=== PATIENT | male | born 1935 | race Caucasian/White ===

== ENCOUNTER 2017-07-08 11:50 | Inpatient (IN) | payer OTHER, MEDICARE ==
[2017-07-08] VITALS (9 sets, daily range): BP systolic 112–187; BP diastolic 65–91; PULSE 60–76; RESP 17–40; TEMP 96.7–97.8; O2SAT 89–98
[~2017-07-08] VITALS: Ht 175.3 cm; Wt 91.4 kg
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
[2017-07-08] MEDS ORDERED: TETANUS/DIPHTHERIA TOXOID ADULT 0.5 ML VIAL IM ONE (12:30)
[2017-07-08] MEDS ORDERED: SODIUM CHLORIDE 0.9% FLUSH 10 ML FLUSH IVF PRN (12:30)
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
[2017-07-08 13:01] LABS: AUTOMATED NEUTROPHIL # 11.8 TH/MM3 (1.8-7.7); BASOPHIL % 0.3 % (0.0-2.0); EOSINOPHIL # 0.1 TH/MM3 (0-0.4); HEMATOCRIT 50.3 % (39.0-51.0); HEMOGLOBIN 16.6 GM/DL (13.0-17.0); LYMPHOCYTE # 1.3 TH/MM3 (1.0-4.8); MEAN CELL VOLUME 94.5 FL (80.0-100.0); MEAN CORPUSCULAR HEMOGLOBIN 31.2 PG (27.0-34.0); MEAN PLATELET VOLUME 8.7 FL (7.0-11.0); MONO % 5.7 % (0.0-8.0); MONOCYTE # 0.8 TH/MM3 (0-0.9); PLATELET COUNT 206 TH/MM3 (150-450); RED BLOOD COUNT 5.32 MIL/MM3 (4.50-5.90); RED CELL DISTRIBUTION WIDTH 14.6 % (11.6-17.2)
[2017-07-08 13:14] LABS: INTERNATIONAL NORMALIZED RATIO 1.1 RATIO; PROTHROMBIN TIME - PATIENT 10.8 SEC (9.8-11.6)
[2017-07-08 13:25] LABS: CALCIUM 9.1 MG/DL (8.5-10.1); CREATININE 1.51 MG/DL (0.60-1.30)
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
[2017-07-08] MEDS ORDERED: IODIXANOL 320 MG/ML 10 ML VIAL (for Rad CT) IVCONTRAST ONE (14:44)
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
[2017-07-08] MEDS ORDERED: MORPHINE SULFATE 2 MG/ML INJ IV PUSH ONE (16:15)
[2017-07-08] MEDS ORDERED: RESP: ALBUTEROL 2.5 MG/IPRATROPIUM 0.5 MG NEB (SCH) INH ONE (16:15)
[2017-07-08] MEDS ORDERED: AZITHROMYCIN INJ 500 MG in SODIUM CHLOR 0.9% 250 ML INJ 250 ML IV ONE (16:15)
[2017-07-08] MEDS ORDERED: cefTRIAXone INJ 1,000 MG in SODIUM CHLORIDE 0.9% INJ 100 ML IV ONE (16:15)
[2017-07-08] MEDS ORDERED: ONDANSETRON HCL 4 MG/2 ML VIAL IV PUSH ONE (16:15)
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
[2017-07-08] MEDS ORDERED: BISACODYL 10 MG SUPP RECTAL PRN (16:45)
[2017-07-08] MEDS ORDERED: ACETAMINOPHEN 325 MG TAB PO PRN (16:45)
[2017-07-08] MEDS ORDERED: LACTULOSE SYRUP 20 GM/30 ML CUP PO PRN (16:45)
[2017-07-08] MEDS ORDERED: RESP: ALBUTEROL 2.5 MG/3 ML NEB (PRN) NEB (16:45)
[2017-07-08] MEDS ORDERED: SODIUM CHLORIDE 0.9% FLUSH 10 ML FLUSH IV FLUSH PRN (16:45)
[2017-07-08] MEDS ORDERED: ONDANSETRON HCL 4 MG/2 ML VIAL IVP PRN (16:45)
[2017-07-08] MEDS ORDERED: NALOXONE HCL 0.4 MG/ML AMP IV PUSH PRN (16:45)
[2017-07-08] MEDS ORDERED: SODIUM CHLOR 0.9% 1000 ML INJ 1,000 ML IV SCH (17:00)
[2017-07-08] MEDS ORDERED: METO1TAB9 PO (17:43)
[2017-07-08] MEDS ORDERED: ALBUAER3 (17:43)
[2017-07-08] MEDS ORDERED: ASPI-516 CHEW (17:43)
[2017-07-08] MEDS ORDERED: SPIR25TA PO (17:43)
[2017-07-08] MEDS ORDERED: COEN1CAP (17:43)
[2017-07-08] MEDS ORDERED: SIMV40TA PO (17:43)
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
[2017-07-08] MEDS: RESP: ALBUTEROL 2.5 MG/IPRATROPIUM 0.5 MG NEB (SCH) NEB (20:00)
[2017-07-08] MEDS: SODIUM CHLORIDE 0.9% FLUSH 10 ML FLUSH IV FLUSH SCH (20:25)
[2017-07-08] MEDS: DOCUSATE SODIUM 50 MG/SENNA 8.6 MG TAB PO SCH (20:28)
[2017-07-08] MEDS: ACETAMINOPHEN/HYDROcodone 325 MG/5 MG TAB PO PRN (20:29)
[2017-07-08] MEDS ORDERED: MORPHINE SULFATE 2 MG/ML INJ IV PUSH PRN (20:30)
[2017-07-08] MEDS: BUDESONIDE-FORMOTEROL 160/4.5 MCG INHALER INH SCH (22:16)
[2017-07-09] VITALS (9 sets, daily range): BP systolic 104–172; BP diastolic 44–73; PULSE 62–77; RESP 17–18; TEMP 96.7–97.5; O2SAT 92–98
[2017-07-09] MEDS: ACETAMINOPHEN/HYDROcodone 325 MG/5 MG TAB PO PRN ×4 (01:04→22:22)
[2017-07-09 07:23] LABS: BICARBONATE 25.1 MEQ/L (21.0-32.0); CALCIUM 8.7 MG/DL (8.5-10.1); CREATININE 1.73 MG/DL (0.60-1.30)
[2017-07-09] MEDS: RESP: ALBUTEROL 2.5 MG/IPRATROPIUM 0.5 MG NEB (SCH) NEB ×4 (08:18→19:45)
[2017-07-09] MEDS: METOPROLOL SUCCINATE 50 MG EXTENDED RELEASE TAB PO SCH (10:11)
[2017-07-09] MEDS: SPIRONOLACTONE 25 MG TAB PO SCH (10:11)
[2017-07-09] MEDS: DOCUSATE SODIUM 50 MG/SENNA 8.6 MG TAB PO SCH ×2 (10:11→22:22)
[2017-07-09] MEDS: BUDESONIDE-FORMOTEROL 160/4.5 MCG INHALER INH SCH ×2 (10:12→22:22)
[2017-07-09] MEDS: SODIUM CHLORIDE 0.9% FLUSH 10 ML FLUSH IV FLUSH SCH ×2 (10:15→22:22)
[2017-07-09 10:40] LABS: AUTOMATED NEUTROPHIL # 13.2 TH/MM3 (1.8-7.7); BASOPHIL % 0.2 % (0.0-2.0); EOSINOPHIL # 0.1 TH/MM3 (0-0.4); EOSINOPHIL % 0.6 % (0.0-4.0); HEMOGLOBIN 14.9 GM/DL (13.0-17.0); LYMPH % 7.1 % (9.0-44.0); LYMPHOCYTE # 1.1 TH/MM3 (1.0-4.8); MEAN CELL VOLUME 95.8 FL (80.0-100.0); MEAN CORPUSCULAR HEMOGLOBIN 31.6 PG (27.0-34.0); MONO % 8.5 % (0.0-8.0); MONOCYTE # 1.3 TH/MM3 (0-0.9); NEUT % 83.6 % (16.0-70.0); PLATELET COUNT 172 TH/MM3 (150-450); RED CELL DISTRIBUTION WIDTH 14.9 % (11.6-17.2); WHITE BLOOD COUNT 15.8 TH/MM3 (4.0-11.0)
[2017-07-09] MEDS ORDERED: WALKER/ADULT/FO1 MIS (15:00)
--- NOTE | 2017-07-09 15:01 | HHI.FF ---
Face to Face Verification Diagnosis: (1) Rib fractures (2) COPD with acute lower respiratory infection Physical Therapy Order: Evaluate and Treat Home Health Nursing Order: Medical education Signs/symptoms of disease process Oxygen administration education I have seen patient Matteo Waters on 07/09/17. My clinical findings support the need for the requested home health care services because: Ltd mobility - disease progression Patient has SOB Deconditioned w/ increased weakness Limited ability to care for self High risk of falls I certify that my clinical findings support that this patient is homebound because: Hx COPD- exertion dyspnea/weakness Unsafe to leave home unassisted Unable to use public transportation See DME order for [employer] Jasso MD Jul 09, 2017 15:01
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
[2017-07-09] MEDS: cefTRIAXone INJ 1,000 MG in SODIUM CHLORIDE 0.9% INJ 100 ML IV SCH (16:45)
--- NOTE | 2017-07-09 17:52 | EKG ---
Date Performed: 07/08/2017 Time Performed: 12:07:07 PTAGE: 81 years EKG: Sinus rhythm WITH SINUS ARRHYTHMIA WITH FIRST DEGREE AV BLOCK POSSIBLE ANTERIOR MYOCARDIAL INFARCTION ABNORMAL EC G Compared to PREVIOUS TRACING , the patient has had a change in the precordial progression, concerning for an anterior myocardial infarction, age indeterminate. PREVIOUS TRACIN04/08/1998 10.26 DOCTOR: Agnes Argueta Interpretating Date/Time 07/09/2017 17:51:43
[2017-07-09] MEDS: AZITHROMYCIN INJ 500 MG in SODIUM CHLOR 0.9% 250 ML INJ 250 ML IV SCH (17:53)
[2017-07-09] MEDS: MAGNESIUM HYDROXIDE SUSP 30 ML CUP PO PRN (22:22)
[2017-07-10] VITALS (8 sets, daily range): BP systolic 100–172; BP diastolic 53–77; PULSE 63–106; RESP 18–19; TEMP 97–98.6; O2SAT 93–97
[2017-07-10] MEDS ORDERED: ALUMINUM/MAGNESIUM/SIMETH 30 ML CUP PO ONE (03:45)
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
[2017-07-10] MEDS: RESP: ALBUTEROL 2.5 MG/IPRATROPIUM 0.5 MG NEB (SCH) NEB ×4 (08:22→19:37)
[2017-07-10] MEDS: METOPROLOL SUCCINATE 50 MG EXTENDED RELEASE TAB PO SCH (08:28)
[2017-07-10] MEDS: SPIRONOLACTONE 25 MG TAB PO SCH (08:28)
[2017-07-10] MEDS: DOCUSATE SODIUM 50 MG/SENNA 8.6 MG TAB PO SCH ×2 (08:28→21:58)
[2017-07-10] MEDS: SODIUM CHLORIDE 0.9% FLUSH 10 ML FLUSH IV FLUSH SCH ×2 (08:29→21:58)
[2017-07-10] MEDS: BUDESONIDE-FORMOTEROL 160/4.5 MCG INHALER INH SCH ×2 (08:29→21:59)
[2017-07-10] MEDS: ACETAMINOPHEN/HYDROcodone 325 MG/5 MG TAB PO PRN ×3 (08:46→22:00)
[2017-07-10 10:41] LABS: AUTOMATED NEUTROPHIL # 11.6 TH/MM3 (1.8-7.7); BASOPHIL # 0.1 TH/MM3 (0-0.2); BASOPHIL % 0.4 % (0.0-2.0); EOSINOPHIL # 0.1 TH/MM3 (0-0.4); HEMATOCRIT 43.1 % (39.0-51.0); HEMOGLOBIN 14.2 GM/DL (13.0-17.0); LYMPH % 5.9 % (9.0-44.0); LYMPHOCYTE # 0.8 TH/MM3 (1.0-4.8); MEAN CELL VOLUME 95.4 FL (80.0-100.0); MEAN CORPUSCULAR HEMOGLOBIN 31.4 PG (27.0-34.0); MEAN CORPUSCULAR HGB CONC 32.9 % (32.0-36.0); MONOCYTE # 0.9 TH/MM3 (0-0.9); NEUT % 85.7 % (16.0-70.0); PLATELET COUNT 152 TH/MM3 (150-450); RED BLOOD COUNT 4.52 MIL/MM3 (4.50-5.90); RED CELL DISTRIBUTION WIDTH 14.9 % (11.6-17.2); WHITE BLOOD COUNT 13.6 TH/MM3 (4.0-11.0)
[2017-07-10 10:55] LABS: BICARBONATE 26.4 MEQ/L (21.0-32.0); CALCIUM 9.2 MG/DL (8.5-10.1); CREATININE 1.5 MG/DL (0.60-1.30)
[2017-07-10] MEDS: FAMOTIDINE 20 MG TAB PO SCH ×2 (12:12→21:59)
[2017-07-10] MEDS: HEPARIN SODIUM - SQ 10,000 UNITS/ML VIAL SQ SCH ×2 (15:36→21:59)
[2017-07-10] MEDS: AZITHROMYCIN INJ 500 MG in SODIUM CHLOR 0.9% 250 ML INJ 250 ML IV SCH (16:51)
[2017-07-10] MEDS: cefTRIAXone INJ 1,000 MG in SODIUM CHLORIDE 0.9% INJ 100 ML IV SCH (16:51)
[2017-07-10] MEDS: MAGNESIUM HYDROXIDE SUSP 30 ML CUP PO PRN (22:00)
[2017-07-10] MEDS: SENNOSIDES 8.6 MG TAB PO PRN (22:02)
[2017-07-11] VITALS (10 sets, daily range): BP systolic 140–179; BP diastolic 81–87; PULSE 68–81; RESP 19–21; TEMP 96.8–97.6; O2SAT 93–97
[2017-07-11] MEDS: HEPARIN SODIUM - SQ 10,000 UNITS/ML VIAL SQ SCH ×3 (05:51→23:37)
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
[2017-07-11 08:16] LABS: AUTOMATED NEUTROPHIL # 13.4 TH/MM3 (1.8-7.7); BASOPHIL # 0.1 TH/MM3 (0-0.2); BASOPHIL % 0.4 % (0.0-2.0); EOSINOPHIL # 0.1 TH/MM3 (0-0.4); EOSINOPHIL % 0.7 % (0.0-4.0); HEMATOCRIT 41.1 % (39.0-51.0); HEMOGLOBIN 13.7 GM/DL (13.0-17.0); LYMPH % 4.6 % (9.0-44.0); LYMPHOCYTE # 0.7 TH/MM3 (1.0-4.8); MEAN CELL VOLUME 94.9 FL (80.0-100.0); MEAN CORPUSCULAR HEMOGLOBIN 31.6 PG (27.0-34.0); MEAN CORPUSCULAR HGB CONC 33.3 % (32.0-36.0); MEAN PLATELET VOLUME 9.6 FL (7.0-11.0); MONO % 8.6 % (0.0-8.0); MONOCYTE # 1.3 TH/MM3 (0-0.9); NEUT % 85.7 % (16.0-70.0); PLATELET COUNT 174 TH/MM3 (150-450); RED BLOOD COUNT 4.34 MIL/MM3 (4.50-5.90); RED CELL DISTRIBUTION WIDTH 14.7 % (11.6-17.2); WHITE BLOOD COUNT 15.6 TH/MM3 (4.0-11.0)
[2017-07-11] MEDS: SPIRONOLACTONE 25 MG TAB PO SCH (08:17)
[2017-07-11] MEDS: METOPROLOL SUCCINATE 50 MG EXTENDED RELEASE TAB PO SCH (08:17)
[2017-07-11] MEDS: DOCUSATE SODIUM 50 MG/SENNA 8.6 MG TAB PO SCH ×2 (08:17→20:43)
[2017-07-11] MEDS: FAMOTIDINE 20 MG TAB PO SCH ×2 (08:17→20:43)
[2017-07-11 08:46] LABS: BICARBONATE 30.6 MEQ/L (21.0-32.0); CALCIUM 9.4 MG/DL (8.5-10.1); CREATININE 1.27 MG/DL (0.60-1.30)
[2017-07-11] MEDS: RESP: ALBUTEROL 2.5 MG/IPRATROPIUM 0.5 MG NEB (SCH) NEB ×4 (08:48→19:43)
[2017-07-11] MEDS: SODIUM CHLORIDE 0.9% FLUSH 10 ML FLUSH IV FLUSH SCH ×2 (09:00→20:43)
[2017-07-11] MEDS: BUDESONIDE-FORMOTEROL 160/4.5 MCG INHALER INH SCH ×2 (09:00→20:45)
[2017-07-11] MEDS: ACETAMINOPHEN/HYDROcodone 325 MG/5 MG TAB PO PRN (11:09)
--- NOTE | 2017-07-11 12:00 | RADRPT ---
EXAM DATE/TIME: 07/11/2017 11:44 [facility] COMPARISON: No previous studies available for comparison. INDICATIONS : Short of breath. MEDICAL HISTORY : None. SURGICAL HISTORY : CABG. ENCOUNTER: Subsequent ACUITY: 3 days PAIN SCORE: 0/10 LOCATION: Bilateral chest FINDINGS: Sternal wires from previous bypass are noted. The heart is minimally enlarged. There is mild inters titial prominence. There is no significant pleural effusion. There is no obvious consolidation. De generative changes about both shoulders. CONCLUSION: Collimated with mild congestive failure. Russell Cohn MD FACR on July 11, 2017 at 11:58 Board Certified Radiologist. This report was verified electronically.
[2017-07-11] MEDS: AZITHROMYCIN INJ 500 MG in SODIUM CHLOR 0.9% 250 ML INJ 250 ML IV SCH (16:54)
[2017-07-11] MEDS: cefTRIAXone INJ 1,000 MG in SODIUM CHLORIDE 0.9% INJ 100 ML IV SCH (16:55)
[2017-07-11] MEDS: FUROSEMIDE 40 MG TAB PO SCH (16:59)
[2017-07-11] MEDS: SENNOSIDES 8.6 MG TAB PO PRN (20:43)
[2017-07-11] MEDS: MAGNESIUM HYDROXIDE SUSP 30 ML CUP PO PRN (20:44)
[2017-07-12] VITALS (11 sets, daily range): BP systolic 109–151; BP diastolic 65–92; PULSE 61–87; RESP 18–21; TEMP 96.5–97.7; O2SAT 91–97
[2017-07-12] MEDS: ALUMINUM/MAGNESIUM/SIMETH 30 ML CUP PO PRN (05:49)
[2017-07-12] MEDS: HEPARIN SODIUM - SQ 10,000 UNITS/ML VIAL SQ SCH ×3 (05:49→22:24)
[2017-07-12] MEDS: RESP: ALBUTEROL 2.5 MG/IPRATROPIUM 0.5 MG NEB (SCH) NEB ×5 (08:00→19:49)
[2017-07-12] MEDS: DOCUSATE SODIUM 50 MG/SENNA 8.6 MG TAB PO SCH ×2 (08:15→22:20)
[2017-07-12] MEDS: METOPROLOL SUCCINATE 50 MG EXTENDED RELEASE TAB PO SCH (08:15)
[2017-07-12] MEDS: FAMOTIDINE 20 MG TAB PO SCH ×2 (08:16→22:20)
[2017-07-12] MEDS: FUROSEMIDE 40 MG TAB PO SCH (08:16)
[2017-07-12] MEDS: SPIRONOLACTONE 25 MG TAB PO SCH (08:16)
[2017-07-12] MEDS: SODIUM CHLORIDE 0.9% FLUSH 10 ML FLUSH IV FLUSH SCH ×2 (08:17→22:24)
[2017-07-12] MEDS: BUDESONIDE-FORMOTEROL 160/4.5 MCG INHALER INH SCH ×2 (09:00→22:24)
[2017-07-12] MEDS ORDERED: DOCUSATE SODIUM 50 MG/SENNA 8.6 MG TAB PO ONE (10:00)
[2017-07-12] MEDS ORDERED: MAGNESIUM HYDROXIDE SUSP 30 ML CUP PO ONE (10:00)
[2017-07-12 12:33] LABS: BICARBONATE 26.1 MEQ/L (21.0-32.0); CALCIUM 9.5 MG/DL (8.5-10.1); CREATININE 1.32 MG/DL (0.60-1.30)
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
--- NOTE | 2017-07-12 16:13 | RADRPT ---
EXAM DATE/TIME: 07/12/2017 15:55 [facility] COMPARISON: CHEST SINGLE AP, July 08, 2017, 12:31. INDICATIONS : Congestive heart failure MEDICAL HISTORY : None. SURGICAL HISTORY : CABG. ENCOUNTER: Initial ACUITY: 3 days PAIN SCORE: 0/10 LOCATION: Bilateral chest FINDINGS: The cardiac silhouette is enlarged in transverse diameter. Median sternotomy wires are present. There is prominence of the aortic knob is with calcification characteristic of atherosclerotic vascular di sease. There is subsegmental atelectasis in the right base. CONCLUSION: 1. Cardiomegaly. There is subsegmental atelectasis in the right base. Jalen Whittaker MD on July 12, 2017 at 16:11 Board Certified Radiologist. This report was verified electronically.
[2017-07-12 16:15] LABS: BASOPHIL # 0.1 TH/MM3 (0-0.2); BASOPHIL % 0.5 % (0.0-2.0); EOSINOPHIL # 0.1 TH/MM3 (0-0.4); EOSINOPHIL % 0.4 % (0.0-4.0); HEMATOCRIT 40.2 % (39.0-51.0); HEMOGLOBIN 13.4 GM/DL (13.0-17.0); LYMPH % 4.8 % (9.0-44.0); LYMPHOCYTE # 0.8 TH/MM3 (1.0-4.8); MEAN CELL VOLUME 94.4 FL (80.0-100.0); MEAN CORPUSCULAR HEMOGLOBIN 31.4 PG (27.0-34.0); MEAN CORPUSCULAR HGB CONC 33.2 % (32.0-36.0); MEAN PLATELET VOLUME 9.2 FL (7.0-11.0); MONO % 13.5 % (0.0-8.0); MONOCYTE # 2.2 TH/MM3 (0-0.9); NEUT % 80.8 % (16.0-70.0); PLATELET COUNT 179 TH/MM3 (150-450); RED BLOOD COUNT 4.26 MIL/MM3 (4.50-5.90); RED CELL DISTRIBUTION WIDTH 14.3 % (11.6-17.2); WHITE BLOOD COUNT 16.1 TH/MM3 (4.0-11.0)
[2017-07-12] MEDS: PRAVASTATIN SOD 80 MG TAB PO SCH (22:20)
[2017-07-12] MEDS: AMOXICILLIN/CLAVULANATE K 875 MG TAB PO SCH (22:24)
[2017-07-13] VITALS (16 sets, daily range): BP systolic 121–188; BP diastolic 57–93; PULSE 68–82; RESP 20–24; TEMP 96–97.9; O2SAT 93–100
[2017-07-13] MEDS ORDERED: SODIUM CHLOR 0.9% 1000 ML INJ 1,000 ML IV SCH (04:30)
[2017-07-13] MEDS ORDERED: SODIUM CHLORID 0.9% 500 ML INJ 300 ML IV ONE (04:30)
[2017-07-13] MEDS ORDERED: ASPIRIN 300 MG SUPP RECTAL ONE (04:30)
[2017-07-13 04:33] LABS: ALBUMIN 3.2 GM/DL (3.4-5.0); BICARBONATE 29.3 MEQ/L (21.0-32.0); CALCIUM 9.7 MG/DL (8.5-10.1); CREATININE 1.38 MG/DL (0.60-1.30); MAGNESIUM 2.5 MG/DL (1.5-2.5); PHOSPHORUS 2.6 MG/DL (2.5-4.9)
--- NOTE | 2017-07-13 04:35 | RADRPT ---
EXAM DATE/TIME: 07/13/2017 04:21 [facility] COMPARISON: CT BRAIN W/O CONTRAST, July 08, 2017, 14:10. INDICATIONS : Stroke alert; nonresponsive. RADIATION DOSE: 44.63 CTDIvol (mGy) This report was called by Dr. Morrison to Dr. Knox at 4: 32 AM MEDICAL HISTORY : Chronic obstructive pulmonary disease. Hypertension. Cardiovascular disease SURGICAL HISTORY : CABG ENCOUNTER: Initial ACUITY: 1 day PAIN SCALE: Non-responsive LOCATION: cranial TECHNIQUE: Multiple contiguous axial images were obtained of the head. Using automated exposure control and adj ustment of the mA and/or kV according to patient size, radiation dose was kept as low as reasonably a chievable to obtain optimal diagnostic quality images. DICOM format image data is available electro nically for review and comparison. FINDINGS: There is mild motion artifact. CEREBRUM: There is moderate to severe generalized atrophy. Ventricles are normal in size. No evidence of midli ne shift, mass lesion, hemorrhage or acute infarction. No extra-axial fluid collections are seen. POSTERIOR FOSSA: The cerebellum and brainstem demonstrate no acute finding. The 4th ventricle is midline. The cerebe llopontine angle is unremarkable. EXTRACRANIAL: Visualized sinuses are clear. SKULL: The calvaria is intact. No evidence of skull fracture. CONCLUSION: 1. No acute intracranial abnormality is identified. 2. There is moderate to severe generalized cerebral atrophy. Dexter Morrison MD on July 13, 2017 at 4:30 Board Certified Radiologist. This report was verified electronically.
[2017-07-13] MEDS ORDERED: IOHEXOL 350 MG/ML 10 ML VIAL (for RAD DIAG) IVCONTRAST ONE (04:38)
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
--- NOTE | 2017-07-13 05:05 | RADRPT ---
EXAM DATE/TIME: 07/13/2017 04:21 [facility] COMPARISON: No previous studies available for comparison. INDICATIONS : Stroke alert; nonverbal. IV CONTRAST: 100 cc Omnipaque 350 (iohexol) IV ; Cumulative dose for multiple exams. RADIATION DOSE: 28.64 CTDIvol (mGy) ; Combined studies MEDICAL HISTORY : Cardiovascular disease. Chronic obstructive pulmonary disease. Hypertension. SURGICAL HISTORY : CABG ENCOUNTER: Initial ACUITY: 1 day PAIN SCALE: Non-responsive LOCATION: neck Elevated flow velocities and ICA/CCA ratios have been found to correlate with increased degrees of vessel stenosis, calculated as percentage of diameter relative to a normal segment of distal ICA/CCA. TECHNIQUE: Volumetric scanning was performed using a multirow detector CT scanner. The data was post processed with a variety of visualization algorithms including full-volume maximum intensity projection, multip lanar sliding thin-slab reformation, curved-planar reformation, and surface-rendering techniques. Us ing automated exposure control and adjustment of the mA and/or kV according to patient size, radiatio n dose was kept as low as reasonably achievable to obtain optimal diagnostic quality images. DICOM f ormat image data is available electronically for review and comparison. FINDINGS: Examination quality is degraded by motion artifact. AORTIC ARCH: There is severe atherosclerotic disease of the aortic arch. There is moderate to severe atherosclerot ic disease of the right brachiocephalic artery. There is a short segment high-grade stenosis of the l eft proximal subclavian artery. RIGHT CAROTID: The common carotid artery and bifurcation are not well evaluated secondary to motion artifact. There is mild to moderate atherosclerotic disease throughout the common carotid artery and moderate calcifi cation at the carotid bulb and proximal internal carotid artery. LEFT CAROTID: There is moderate atherosclerotic disease of the common carotid artery. There is motion artifact limi ting evaluation of the bifurcation. VERTEBRALS: Both vertebral arteries demonstrate no high-grade stenosis. Portions are not well evaluated secondary to motion artifact. CONCLUSION: 1. Examination quality degraded by motion artifact. There is moderate atherosclerotic disease in the carotid bulbs bilaterally. No definite high-grade stenosis is seen given the limitation of the motion artifact. 2. There is a short segment high-grade stenosis of the left proximal subclavian artery. Dexter Morrison MD on July 13, 2017 at 5:00 Board Certified Radiologist. This report was verified electronically.
[2017-07-13] MEDS: HEPARIN SODIUM - SQ 10,000 UNITS/ML VIAL SQ SCH ×3 (06:34→20:11)
[2017-07-13] MEDS ORDERED: FUROSEMIDE 20 MG/2 ML VIAL IV PUSH ONE (07:30)
[2017-07-13] MEDS ORDERED: RESP: ALBUTEROL 2.5 MG/IPRATROPIUM 0.5 MG NEB (PRN) NEB (07:30)
[2017-07-13] MEDS: DOCUSATE SODIUM 50 MG/SENNA 8.6 MG TAB PO SCH ×2 (09:00→20:12)
[2017-07-13] MEDS ORDERED: FUROSEMIDE 20 MG TAB PO SCH (09:00)
[2017-07-13] MEDS: SPIRONOLACTONE 25 MG TAB PO SCH (09:12)
[2017-07-13] MEDS: FAMOTIDINE 20 MG TAB PO SCH ×2 (09:12→20:12)
[2017-07-13] MEDS: methylPREDNISolone SOD SUCC 40 MG/1 ML VIAL IV PUSH SCH ×3 (09:12→20:12)
[2017-07-13] MEDS: ASPIRIN 81 MG CHEW TAB CHEW SCH (09:12)
[2017-07-13] MEDS: METOPROLOL SUCCINATE 50 MG EXTENDED RELEASE TAB PO SCH (09:13)
[2017-07-13] MEDS: SODIUM CHLORIDE 0.9% FLUSH 10 ML FLUSH IV FLUSH SCH ×2 (09:14→20:12)
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
[2017-07-13 10:59] LABS: AUTOMATED NEUTROPHIL # 10.8 TH/MM3 (1.8-7.7); BASOPHIL % 0.4 % (0.0-2.0); EOSINOPHIL # 0.1 TH/MM3 (0-0.4); HEMOGLOBIN 13.5 GM/DL (13.0-17.0); LYMPH % 5.5 % (9.0-44.0); LYMPHOCYTE # 0.7 TH/MM3 (1.0-4.8); MEAN PLATELET VOLUME 9.1 FL (7.0-11.0); MONO % 7.8 % (0.0-8.0); NEUT % 85.3 % (16.0-70.0); PLATELET COUNT 193 TH/MM3 (150-450); RED BLOOD COUNT 4.37 MIL/MM3 (4.50-5.90); RED CELL DISTRIBUTION WIDTH 14.5 % (11.6-17.2); WHITE BLOOD COUNT 12.7 TH/MM3 (4.0-11.0)
[2017-07-13 11:17] LABS: CHOLESTEROL 154 MG/DL (120-200); TRIGLYCERIDES 165 MG/DL (42-150)
[2017-07-13 11:42] LABS: CHOLESTEROL/ HDL RATIO 2.43 RATIO; FREE T4 0.97 NG/DL (0.76-1.46); HDL CHOLESTEROL 63.3 MG/DL (40.0-60.0); LDL CHOLESTEROL 58 MG/DL (0-99); TROPONIN I LESS THAN 0.02 NG/ML (0.02-0.05)
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
[2017-07-13] MEDS: cloNIDine HCL 0.1 MG TAB PO PRN (14:59)
[2017-07-13] MEDS: BUDESONIDE-FORMOTEROL 160/4.5 MCG INHALER INH SCH ×2 (15:04→20:12)
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
[2017-07-13] MEDS ORDERED: SODIUM POLYSTYRENE SULFONATE SUSP 15 GM/60 ML CUP PO ONE (15:15)
[2017-07-13] MEDS ORDERED: PILL SPLITTER OTHER PRN (15:30)
[2017-07-13] MEDS: AMOXICILLIN/CLAVULANATE K 875 MG TAB PO SCH ×2 (16:15→20:12)
[2017-07-13] MEDS: RESP: ALBUTEROL 2.5 MG/IPRATROPIUM 0.5 MG NEB (SCH) NEB ×2 (16:53→20:38)
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
--- NOTE | 2017-07-13 17:28 | ECHRPT ---
Indication: CVA/TIA CONCLUSIONS Very technically difficult study. The left ventricular systolic function is [id number] reduced with an estimated ejection fra ction in the range of 35-40%. Doppler parameters are consistent with impaired left ventricular relaxtion (grade 1 diastolic dysfun ction). Trace mitral valve regurgitation. There is trace tricuspid valve regurgitation. BP: 193 / 83 HR: Rhythm: Sinus MEASUREMENTS (Male / Female) Normal Values Technical Quality:Very technically difficult study 2D ECHO LV Diastolic Diameter PLAX 5.3 cm 4.2 - 5.9 / 3.9 - 5.3 cm LV Systolic Diameter PLAX 4.5 cm IVS Diastolic Thickness 0.9 cm 0.6 - 1.0 / 0.6 - 0.9 cm LVPW Diastolic Thickness 0.9 cm 0.6 - 1.0 / 0.6 - 0.9 cm LV Relative Wall Thickness 0.3 RV Internal Dim ED PLAX 1.6 cm LVOT Diameter 2.0 cm Aortic Root Diameter 2.9 cm LA Systolic Diameter LX 3.3 cm 3.0 - 4.0 / 2.7 - 3.8 cm M-MODE AV Cusp Separation MM 1.7 cm DOPPLER AV Peak Velocity 108.0 cm/s AV Peak Gradient 4.7 mmHg AV Mean Gradient 2.0 mmHg AV Velocity Time Integral 19.4 cm LVOT Peak Velocity 75.9 cm/s LVOT Peak Gradient 2.3 mmHg LVOT Velocity Time Integral 12.9 cm AV Area Cont Eq vti 2.1 cm AV Area Cont Eq pk 2.2 cm Mitral E Point Velocity 65.2 cm/s Mitral A Point Velocity 78.5 cm/s Mitral E to A Ratio 0.8 LV E' Lateral Velocity 6.0 cm/s Mitral E to LV E' Lateral Ratio 10.8 LV E' Septal Velocity 6.1 cm/s Mitral E to LV E' Septal Ratio 10.6 TR Peak Velocity 157.0 cm/s TR Peak Gradient 9.9 mmHg FINDINGS LEFT VENTRICLE Normal left ventricular size. Wall thickness is normal. The left ventricular systolic function is [id number] reduced with an estimated ejection fra ction in the range of 35-40%. There is global left ventricular dysfunction. There is abnormal septal motion consistent with an intraventricular conduction delay. Doppler parameters are consistent with impaired left ventricular relaxtion (grade 1 diastolic dysfun ction). RIGHT VENTRICLE Grossly normal function LEFT ATRIUM The left atrial size is mildly dilated. RIGHT ATRIUM The right atrial size is moderately dilated. ATRIAL SEPTUM Normal atrial septal thickness. AORTA The aortic root and proximal ascending aorta are not well visualized. MITRAL VALVE Grossly normal Trace mitral valve regurgitation. AORTIC VALVE Grossly normal No aortic valve stenosis. No aortic valve regurgitation. TRICUSPID VALVE Grossly normal There is trace tricuspid valve regurgitation. No tricuspid valve stenosis. PULMONARY VALVE The pulmonary valve is not well visualized. Jonathan Escalera DO (Electronically Signed) Final Date:13 July 2017 17:27
[2017-07-13] MEDS: ALUMINUM/MAGNESIUM/SIMETH 30 ML CUP PO PRN (18:34)
[2017-07-13] MEDS: PRAVASTATIN SOD 80 MG TAB PO SCH (20:12)
[2017-07-14] VITALS (14 sets, daily range): BP systolic 132–171; BP diastolic 61–117; PULSE 67–81; RESP 20–33; TEMP 97.7–98.8; O2SAT 92–95
[2017-07-14 04:28] LABS: AUTOMATED NEUTROPHIL # 11.1 TH/MM3 (1.8-7.7); BASOPHIL % 0.2 % (0.0-2.0); HEMATOCRIT 36.4 % (39.0-51.0); HEMOGLOBIN 12.2 GM/DL (13.0-17.0); LYMPH % 3.9 % (9.0-44.0); LYMPHOCYTE # 0.5 TH/MM3 (1.0-4.8); MEAN CELL VOLUME 93.4 FL (80.0-100.0); MEAN CORPUSCULAR HEMOGLOBIN 31.3 PG (27.0-34.0); MEAN CORPUSCULAR HGB CONC 33.5 % (32.0-36.0); MONO % 3.6 % (0.0-8.0); MONOCYTE # 0.4 TH/MM3 (0-0.9); NEUT % 92.3 % (16.0-70.0); PLATELET COUNT 191 TH/MM3 (150-450); RED BLOOD COUNT 3.89 MIL/MM3 (4.50-5.90); RED CELL DISTRIBUTION WIDTH 14.4 % (11.6-17.2)
[2017-07-14 04:45] LABS: ALBUMIN 2.9 GM/DL (3.4-5.0); BICARBONATE 32.5 MEQ/L (21.0-32.0); CALCIUM 9.1 MG/DL (8.5-10.1); CREATININE 1.4 MG/DL (0.60-1.30); MAGNESIUM 2.6 MG/DL (1.5-2.5)
[2017-07-14 04:47] LABS: PHOSPHORUS 2.9 MG/DL (2.5-4.9)
[2017-07-14] MEDS: HEPARIN SODIUM - SQ 10,000 UNITS/ML VIAL SQ SCH ×3 (05:09→19:32)
[2017-07-14] MEDS: methylPREDNISolone SOD SUCC 40 MG/1 ML VIAL IV PUSH SCH ×3 (05:09→19:27)
--- NOTE | 2017-07-14 06:43 | EKG ---
Date Performed: 07/13/2017 Time Performed: 07:17:26 PTAGE: 81 years EKG: ECTOPIC ATRIAL RHYTHM WITH OCCASIONAL VENTRICULAR PREMATURE COMPLEXES ABNORMAL QRS-T ANGLE BASELINE ARTIFACT NOTED ABNORMAL ECG Compared to PREVIOUS TRACING , there has been a change in the P-wave focus. PREVIOUS TRACIN 018 12.07 DOCTOR: Sandeep Leger Interpretating Date/Time 07/14/2017 06:41:03
[2017-07-14] MEDS: METOPROLOL SUCCINATE 50 MG EXTENDED RELEASE TAB PO SCH (08:31)
[2017-07-14] MEDS: SODIUM CHLORIDE 0.9% FLUSH 10 ML FLUSH IV FLUSH SCH ×2 (08:31→19:28)
[2017-07-14] MEDS: ASPIRIN 81 MG CHEW TAB CHEW SCH (08:31)
[2017-07-14] MEDS: BUDESONIDE-FORMOTEROL 160/4.5 MCG INHALER INH SCH ×2 (08:31→19:28)
[2017-07-14] MEDS: AMOXICILLIN/CLAVULANATE K 875 MG TAB PO SCH ×2 (08:32→19:31)
[2017-07-14] MEDS: FUROSEMIDE 40 MG TAB PO SCH (08:32)
[2017-07-14] MEDS: FAMOTIDINE 20 MG TAB PO SCH ×2 (08:32→19:31)
[2017-07-14] MEDS: SPIRONOLACTONE 25 MG TAB PO SCH (08:32)
[2017-07-14] MEDS: DOCUSATE SODIUM 50 MG/SENNA 8.6 MG TAB PO SCH ×2 (09:00→19:28)
[2017-07-14] MEDS: RESP: ALBUTEROL 2.5 MG/IPRATROPIUM 0.5 MG NEB (SCH) NEB ×4 (10:02→19:38)
--- NOTE | 2017-07-14 17:17 | HHI.PR ---
Subjective Remarks ALERT NO SOB AT REST Objective Vital Signs Date Time Temp Pulse Resp B/P (MAP) Pulse Ox O2 Delivery O2 Flow Rate FiO2 07/14/17 16:00 98.3 74 25 154/72 (99) 94 07/14/17 16:00 74 07/14/17 14:00 80 07/14/17 12:00 75 07/14/17 12:00 98.5 75 33 138/67 (90) 92 07/14/17 10:03 93 Nasal Cannula 4.00 07/14/17 10:00 71 07/14/17 08:00 98.8 73 29 171/77 (108) 93 07/14/17 08:00 73 07/14/17 08:00 93 Nasal Cannula 4.00 07/14/17 06:00 70 07/14/17 04:00 97.9 67 21 132/61 (84) 92 07/14/17 04:00 68 07/14/17 02:00 71 07/14/17 00:00 69 07/14/17 00:00 98.0 69 31 145/67 (93) 95 07/13/17 22:00 73 07/13/17 20:38 97 Nasal Cannula 5.00 07/13/17 20:00 97.8 71 23 121/57 (78) 95 07/13/17 20:00 71 07/13/17 19:00 96 Nasal Cannula 5.00 I/O 07/13/17 07/13/17 07/13/17 07/14/17 07/14/17 07/14/17 07:00 15:00 23:00 07:00 15:00 23:00 Intake Total 780 ml 500 ml 200 ml Output Total 2 ml 1150 ml 60 ml Balance 778 ml -650 ml 140 ml Intake Oral 480 ml 500 ml 200 ml IV Total 300 ml Output Urine Total 1150 ml 60 ml Stool Total 2 ml # Voids 1 # Bowel Movements 1 1 Result Diagram: 07/14/17 03407/14/17343 Objective Remarks GENERAL: SKIN: Warm and dry. HEAD: Atraumatic. Normocephalic. EYES: Pupils equal and round. No scleral icterus. No injection or drainage. ENT: No nasal bleeding or discharge. Mucous membranes pink and moist. NECK: Trachea midline. No JVD. CARDIOVASCULAR: Regular rate and rhythm. RESPIRATORY: No accessory muscle use. Clear to auscultation. Breath sounds equal bilaterally. GASTROINTESTINAL: Abdomen soft, non-tender, nondistended. Hepatic and splenic margins not palpable. MUSCULOSKELETAL: Extremities without clubbing, cyanosis, or edema. No obvious deformities. NEUROLOGICAL: Awake and alert. No obvious cranial nerve deficits. Motor grossly within normal limits. Five out of 5 muscle strength in the arms and legs. Normal speech. PSYCHIATRIC: Appropriate mood and affect; insight and judgment normal. Assessment and Plan Assessment and Plan ASSESSMENT RESPIRATORY FAILURE COPD RIB FX PLAN O2 NEEDED [id number] ACTIVITY F/U CXRAY Nelson,Nelson Diaz MD Jul 14, 2017 17:17
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
[2017-07-14] MEDS: PRAVASTATIN SOD 80 MG TAB PO SCH (19:27)
[2017-07-14] MEDS: cloNIDine HCL 0.1 MG TAB PO PRN (20:10)
[2017-07-15 00:34] VITALS: BP 151/68; PULSE 71; RESP 16; TEMP 98.6; O2SAT 94
[2017-07-15 00:37] VITALS: PULSE 74
[2017-07-15 03:17] VITALS: BP 139/67; PULSE 101; RESP 20; TEMP 97.8; O2SAT 87
[2017-07-15 03:31] VITALS: O2SAT 97
[2017-07-15 04:49] VITALS: PULSE 77
--- NOTE | 2017-07-15 06:21 | RADRPT ---
EXAM DATE/TIME: 07/15/2017 05:59 [facility] COMPARISON: CT THORAX W CONTRAST, July 08, 2017, 14:18. CHEST SINGLE AP, July 12, 2017, 15:55. INDICATIONS : Shortness of breath, possible pulmonary disease. MEDICAL HISTORY : None. SURGICAL HISTORY : CABG. Abdominal aortic aneurysm repair. ENCOUNTER: Subsequent ACUITY: 3 days PAIN SCORE: 0/10 LOCATION: Bilateral chest FINDINGS: Portable AP view of the chest demonstrates a normal-sized cardiac silhouette with calcification of th e aorta. Patient is post median sternotomy and CABG. Lungs are mildly underinflated. No effusion, con solidation, or pneumothorax is identified. There are right rib fractures involving the fourth, fifth, and sixth ribs that are age-indeterminate. CONCLUSION: 1. No acute cardiopulmonary abnormality is identified. 2. Age-indeterminate fractures of the right posterior fourth, fifth, and sixth ribs. Dexter Morrison MD on July 15, 2017 at 6:17 Board Certified Radiologist. This report was verified electronically.
[2017-07-15] MEDS: HEPARIN SODIUM - SQ 10,000 UNITS/ML VIAL SQ SCH (06:54)
[2017-07-15 07:11] LABS: AUTOMATED NEUTROPHIL # 19.8 TH/MM3 (1.8-7.7); BASOPHIL % 0.2 % (0.0-2.0); HEMATOCRIT 37.8 % (39.0-51.0); HEMOGLOBIN 12.8 GM/DL (13.0-17.0); LYMPH % 3.7 % (9.0-44.0); LYMPHOCYTE # 0.8 TH/MM3 (1.0-4.8); MEAN CELL VOLUME 93.2 FL (80.0-100.0); MEAN CORPUSCULAR HEMOGLOBIN 31.5 PG (27.0-34.0); MEAN CORPUSCULAR HGB CONC 33.8 % (32.0-36.0); MEAN PLATELET VOLUME 8.8 FL (7.0-11.0); MONO % 6.2 % (0.0-8.0); MONOCYTE # 1.4 TH/MM3 (0-0.9); NEUT % 89.9 % (16.0-70.0); PLATELET COUNT 243 TH/MM3 (150-450); RED BLOOD COUNT 4.06 MIL/MM3 (4.50-5.90); RED CELL DISTRIBUTION WIDTH 14.2 % (11.6-17.2); WHITE BLOOD COUNT 22.1 TH/MM3 (4.0-11.0)
[2017-07-15 07:27] LABS: ALBUMIN 3.1 GM/DL (3.4-5.0); BICARBONATE 33.6 MEQ/L (21.0-32.0); CALCIUM 9.2 MG/DL (8.5-10.1); CREATININE 1.59 MG/DL (0.60-1.30); MAGNESIUM 2.7 MG/DL (1.5-2.5); PHOSPHORUS 3.2 MG/DL (2.5-4.9)
[2017-07-15] MEDS: RESP: ALBUTEROL 2.5 MG/IPRATROPIUM 0.5 MG NEB (SCH) NEB ×2 (07:59→11:03)
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
[2017-07-15] MEDS: BUDESONIDE-FORMOTEROL 160/4.5 MCG INHALER INH SCH (09:00)
[2017-07-15] MEDS ORDERED: CYANOCOBALAMIN 1000 MCG/ML VIAL SQ SCH (09:00)
[2017-07-15 09:05] VITALS: BP 117/58; PULSE 74; RESP 22; TEMP 98.1
[2017-07-15 09:47] LABS: BANDS 1 % (0-6); LYMPHOCYTES 2 % (9-44); METAMYELOCYTES 2 % (0-1); MONOCYTES 8 % (0-8); NEUTROPHIL # MANUAL DIFF 19.7 TH/MM3 (1.8-7.7); POLYS (SEG NEUTROPHILS) 86 % (16-70)
[2017-07-15] MEDS ORDERED: AMOX875T2 PO (10:00)
[2017-07-15] MEDS ORDERED: Budeson-Formot 160-4.5 Mcg Inh INH (10:00)
[2017-07-15] MEDS ORDERED: TORS10TA2 PO (10:00)
[2017-07-15] MEDS ORDERED: SPIRCAP INH (10:11)
[2017-07-15] MEDS ORDERED: PRED10 PO (10:14)
[2017-07-15] MEDS: FUROSEMIDE 40 MG TAB PO SCH (10:31)
[2017-07-15] MEDS: ASPIRIN 81 MG CHEW TAB CHEW SCH (10:31)
[2017-07-15] MEDS: AMOXICILLIN/CLAVULANATE K 875 MG TAB PO SCH (10:31)
[2017-07-15] MEDS: FAMOTIDINE 20 MG TAB PO SCH (10:31)
[2017-07-15] MEDS: METOPROLOL SUCCINATE 50 MG EXTENDED RELEASE TAB PO SCH (10:31)
[2017-07-15] MEDS: DOCUSATE SODIUM 50 MG/SENNA 8.6 MG TAB PO SCH (10:32)
[2017-07-15] MEDS: SPIRONOLACTONE 25 MG TAB PO SCH (10:32)
[2017-07-15] MEDS: SODIUM CHLORIDE 0.9% FLUSH 10 ML FLUSH IV FLUSH SCH (10:34)
[2017-07-15] MEDS: methylPREDNISolone SOD SUCC 40 MG/1 ML VIAL IV PUSH SCH (10:34)
== END 2017-07-15 16:23 | disposition home health service (06) | DRG 183 ==
LOC: NEPC 11:50 → NEDA 16:17 → N06A 18:32 → HIME 07-13 08:15 → NEPHCDU 07-14 21:31
PROVIDERS: ADMIT Hospitalist; ATTEND Hospitalist
DX: S22.42XA Multiple fractures of ribs, left side, initial encounter for closed fracture (principal); J18.9 Pneumonia, unspecified organism; I50.23 Acute on chronic systolic (congestive) heart failure; J96.11 Chronic respiratory failure with hypoxia; J44.0 Chronic obstructive pulmonary disease with (acute) lower respiratory infection; Z99.81 Dependence on supplemental oxygen; I13.0 Hypertensive heart and chronic kidney disease with heart failure and stage 1 through stage 4 chronic kidney disease, or unspecified chronic kidney disease; E87.5 Hyperkalemia; Z95.1 Presence of aortocoronary bypass graft; K21.9 Gastro-esophageal reflux disease without esophagitis; N18.9 Chronic kidney disease, unspecified; S51.012A Laceration without foreign body of left elbow, initial encounter; S41.111A Laceration without foreign body of right upper arm, initial encounter; E78.00 Pure hypercholesterolemia, unspecified; E66.9 Obesity, unspecified; I25.10 Atherosclerotic heart disease of native coronary artery without angina pectoris; R29.6 Repeated falls; I25.2 Old myocardial infarction; Z87.891 Personal history of nicotine dependence; Z68.29 Body mass index [BMI] 29.0-29.9, adult; V49.40XA Driver injured in collision with unspecified motor vehicles in traffic accident, initial encounter; I44.0 Atrioventricular block, first degree; Y92.410 Unspecified street and highway as the place of occurrence of the external cause
CPT/HCPCS: 36600; 70450; 70496; 70498; 70551; 71045; 71046; 71260; 72125; 72129; 72132; 72170; 74177; 80048; 80061; 80069; 82607; 82805; 83605; 83735; 83880; 84439; 84443; 84484; 85007; 85025; 85027; 85610; 85730; 86403; 86850; 86900; 86901; 87040; 87077; 87186; 87205; 90471; 90714; 93005; 93306; 94150; 94640; 94664; 94668; 95819; J0456; J0696; J1644; J1940; J2270; J2405; J2920; J3420; J7030; J7040; J7050; Q9967